=== PATIENT | male | born 1960 | race Caucasian/White ===

== ENCOUNTER → 2023-01-17 | Outpatient (CLI) | payer OTHER, SELFPAY ==
--- NOTE | 2023-01-17 19:35 | DI.MRI.S_ITS ---
PROCEDURE: MR SHOULDER RT WO CON INDICATIONS: PAIN IN RT SHOULDER TECHNIQUE: Noncontrast oblique coronal T2 fast spin echo with fat saturation, oblique sagittal T1 spin echo and T2 fast spin echo with fat saturation, axial T1 spin echo and T2 fast spin echo with fat saturation through the shoulder. COMPARISON: None. FINDINGS: Image quality: Excellent. Rotator cuff: Mild to moderate supraspinatus and infraspinatus tendinosis. The teres minor tendon is intact. The subscapularis tendon demonstrates mild tendinosis. No significant rotator cuff muscle atrophy is seen. Bones and bursae: No acute trabecular bone injury or fracture. Chronic traction cystic changes are seen at the posterosuperior humeral head as well as the greater tuberosity near the rotator cuff tendon insertions. High-grade cartilage loss is seen at the superomedial humeral head in there is multifocal cartilage irregularity in the glenoid. Moderate degenerative changes are seen at the acromioclavicular joint with subchondral cystic changes and marginal osteophytes. No significant subacromial/subdeltoid bursal fluid. No significant glenohumeral effusion is seen. Capsule and soft tissues: There is nearly circumferential nondisplaced tearing of the labrum, which appears to be chronic. There is partial intrasubstance tearing of the proximal intra-articular portion of the biceps long head tendon. There is effacement of the normal fat signal in the rotator interval. The anterior band of the inferior glenohumeral ligament appears thickened. IMPRESSION: 1. Kxwh-cu-vvyvzigu diffuse rotator cuff tendinosis. No significant rotator cuff tendon tear seen. 2. Partial intrasubstance tearing of the biceps long head tendon at the proximal intra-articular portion of the biceps anchor. 3. Nearly circumferential chronic tearing of the labrum. 4. 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 5. Moderate acromioclavicular joint osteoarthrosis. 6. Effacement of the rotator interval fat and mild thickening of the inferior glenohumeral ligament are nonspecific, but can be seen in the setting of the clinical syndrome of adhesive capsulitis. Approved by: Israel Shaffer M.D. on 01/20/2023 at 10:21
== END ==
LOC: MRI 19:34
PROVIDERS: Referring Provider Nurse Practitioner Family; Visit Provider Nurse Practitioner Family
DX: S46.111A Strain of muscle, fascia and tendon of long head of biceps, right arm, initial encounter (principal); S43.491A Other sprain of right shoulder joint, initial encounter; M25.511 Pain in right shoulder; M94.211 Chondromalacia, right shoulder; M19.011 Primary osteoarthritis, right shoulder
CPT/HCPCS: 73221

== ENCOUNTER → 2023-03-13 14:37 | Outpatient (CLI) | payer OTHER, SELFPAY ==
--- NOTE | 2023-03-13 | DI.US.S_ITS ---
PROCEDURE: US INJECT OR DRAIN JOINT INDICATIONS: PAIN IN SHOULDER TECHNIQUE: The indications, alternatives, benefits, risks, and complications of the procedure were explained to the patient. Written informed consent was obtained and placed in the chart. The patient was placed in an appropriate position on the fluoroscopy table, and a site was chosen for percutaneous access under ultrasound guidance. Local anesthetic was administered using a 1% lidocaine solution. A hypodermic or spinal needle was then used to access the symptomatic right biceps tendon sheath. Intra-articular location of the needle tip was confirmed by real time ultrasound imaging, followed by steroid administration. The needle was then withdrawn, and a bandage applied to the puncture site. FINDINGS: Joint injected: Right biceps tendon sheath Medications injected: 4 mL of 40 mg/mL Kenalog and 0.5% Ropivacaine mixture. Patient's pain before injection: 6 of 10. Patient's pain after injection: 3 of 10. Complications: None. IMPRESSION: Successful ultrasound guided administration of steroid and anaesthetic solution into the right biceps tendon sheath. Dictated by: Luis Fernando Crawford M.D. on 03/13/2023 at 21:06 Approved by: Luis Fernando Crawford M.D. on 03/13/2023 at 21:07
== END ==
PROVIDERS: PCP Family Medicine; Referring Provider Orthopaedic Surgery; Visit Provider Orthopaedic Surgery
DX: M25.511 Pain in right shoulder (principal)
CPT/HCPCS: 20611

== ENCOUNTER → 2024-09-15 13:40 | Outpatient (CLI) | payer MEDICARE, OTHER, SELFPAY ==
[2024-09-15 15:01] LABS: Cholesterol 233 mg/dL (140-199); HDL Cholesterol 56 mg/dL (40-60); LDL Cholesterol Calculated 147 mg/dL (<100); Triglycerides 151 mg/dL (35-150)
== END ==
PROVIDERS: PCP Nurse Practitioner Family; Referring Provider Nurse Practitioner Family; Visit Provider Nurse Practitioner Family
DX: Z13.220 Encounter for screening for lipoid disorders (principal)
CPT/HCPCS: 36415; 80061

== ENCOUNTER 2024-09-23 09:25 | Emergency (ER) | payer MEDICARE, OTHER, SELFPAY ==
[2024-09-23 09:40] VITALS: BP 171/99; PULSE 77; RESP 17; TEMP 36.9; O2SAT 96; BMI 23.6
--- NOTE | 2024-09-23 09:45 | DI.CT.S_ITS ---
PROCEDURE: CT FACIAL BONES WO CON INDICATIONS: fall TECHNIQUE: Noncontrast 2.5 mm thick axial images acquired from the mandible through the frontal sinuses, with coronal and sagittal reformatting. For radiation dose reduction, the following was used: automated exposure control, adjustment of mA and/or kV according to patient size. COMPARISON: [facility], CR, SPINE CERVICAL 2 OR 3VW, 01/10/2015, 12:46. [facility], CT, CT HEAD/BRAIN WO CON, 09/23/2024, 10:01. [facility], CT, CT CERVICAL SPINE WO CON, 09/23/2024, 10:01. FINDINGS: Image quality: Excellent. Bones and teeth: There is a mildly displaced left inferior orbital wall fracture. No rectus muscle entrapment. Mild fat herniation. Nasal bones and septum are intact. Visualized portions of the mandible demonstrate no fractures or subluxation. Zygomatic arches are intact. Pterygoid plates are intact. Visualized portions of the skull base and auditory canals are intact. Small calcification is present superior to the tip the odontoid. Is unable to be determined based on images at this was present on x-rays in 2014. Sinuses: Mucosal thickening and presumed fluid is present within the left maxillary sinus. Mildly displaced lateral left maxillary sinus wall fracture. Remaining sinuses demonstrate scattered areas of mucosal thickening. Soft tissues: No edema, masses, or fluid collections. No enlarged lymph nodes. No soft tissue lacerations or debris. Vascular: Visualized vascular structures appear normal in the absence of contrast. Bony vascular foramina and canals are intact. IMPRESSION: Mildly displaced inferior orbital wall fracture without rectus muscle entrapment. Left maxillary wall sinus fracture with fluid in the maxillary sinus. Small calcifications superior to the tip of the odontoid. This is suspected to be chronic however, if concern is present within this region for acute avulsion injury, MRI is recommended. Dictated by: Corie Webster M.D. on 09/23/2024 at 10:22 Approved by: Corie Webster M.D. on 09/23/2024 at 10:28
--- NOTE | 2024-09-23 09:45 | DI.CT.S_ITS ---
PROCEDURE: CT CERVICAL SPINE WO CON INDICATIONS: fall TECHNIQUE: Noncontrast 3 mm thick sections acquired from the skull base to the T4 level. Sagittal and coronal reformats were then constructed. For radiation dose reduction, the following was used: automated exposure control, adjustment of mA and/or kV according to patient size. COMPARISON: [facility], , SPINE CERVICAL 2 OR 3VW, 01/10/2015, 12:46. FINDINGS: Image quality: Excellent. Bones: Small calcification at the superior aspect of the odontoid. It is difficult to determine if this was present on x-ray of 2014. Anterior fusion from C4 through C6 is present. Visualized superior ribs are intact. Soft tissues: Prevertebral soft tissues are normal in thickness. No paravertebral hematomas. No apical pneumothoraces. IMPRESSION: Small calcification superior to the odontoid. This is suspected to be chronic either related to degenerative change or old trauma. However, if concern persists for acute injury, MRI may be obtained. Dictated by: Corie Webster M.D. on 09/23/2024 at 10:28 Approved by: Corie Webster M.D. on 09/23/2024 at 10:29
--- NOTE | 2024-09-23 09:45 | DI.CT.S_ITS ---
PROCEDURE: CT HEAD/BRAIN WO CON INDICATIONS: fall TECHNIQUE: Noncontrast 4.5 mm thick angled axial sections acquired from the foramen magnum to the vertex, with coronal and sagittal reformats. For radiation dose reduction, the following was used: automated exposure control, adjustment of mA and/or kV according to patient size. COMPARISON: [facility], CT, CT FACIAL BONES WO CON, 09/23/2024, 10:01. FINDINGS: Image quality: Diagnostic. CSF spaces: Basal cisterns are patent. No extra-axial fluid collections. Ventricles are normal in size and shape. Brain: No midline shift. No intracranial mass effect or hemorrhage. Monge-white matter interface is normal. Skull and face: There is irregularity within the inferior left orbital bones. Sinuses: Visualized sinuses demonstrate mucosal thickening most prominent in the left maxillary sinus as well as ethmoid air cells.. Irregularity is present along the lateral wall of the left maxillary sinus. IMPRESSION: No acute intracranial pathology. Suspected left inferior orbital wall and left maxillary wall fracture. Please see CT facial bone report for further details. Dictated by: Corie Webster M.D. on 09/23/2024 at 10:20 Approved by: Corie Webster M.D. on 09/23/2024 at 10:22
--- NOTE | 2024-09-23 09:46 | DI.RAD.S_ITS ---
PROCEDURE: XR WRIST LT MIN 3V INDICATIONS: fall TECHNIQUE: 4 views of the wrist were acquired. COMPARISON: None. FINDINGS: Bones: No fractures or dislocations. No suspicious bony lesions. Soft tissues: No suspicious soft tissue calcifications. IMPRESSION: No visualized acute fracture or dislocation. However, if clinical concern and/or pain persist, short interval imaging followup in 7-10 days is recommended, as occult injury cannot be definitively excluded. Dictated by: Corie Webster M.D. on 09/23/2024 at 10:13 Approved by: Corie Webster M.D. on 09/23/2024 at 10:14
--- NOTE | 2024-09-23 12:52 | ED_ITS ---
HPI - General Adult General Chief complaint: Trauma Stated complaint: Fell, eyebrow/head injury Time Seen by Provider: 09/23/24 12:51 Source: patient Mode of arrival: Ambulatory History of Present Illness HPI narrative: This is a 64-year-old male here for evaluation of trauma with brief loss of consciousness. Patient reports feeling fine and is in his normal state of health when he went fishing this morning. While attempting to get out of the boat he tripped and hit his head with a brief loss of consciousness for a few seconds. He is not on any blood thinners. He does admit to a iwde-[id number] headache, dizziness, nausea but no vomiting. He denies any neck pain, chest pain, shortness of breath, abdominal pain. He does admit to left-sided facial pain and swelling with a laceration above his left eyebrow. He did not bite his tongue or chip any teeth. There is no seizure activity witnessed. He does admit to left wrist and right knee pain. He does not take any medications on a regular basis. He drinks alcohol occasionally but none in the last 24 hours. He does use marijuana for pain management. His last tetanus shot was over 5 years. Related Data Previous Rx's Medication Instructions Recorded oxycodone-acetaminophen 5 mg-325 1 tab PO Q8H PRN pain #15 tabs 09/23/24 mg tablet (Percocet) Allergies Allergy/AdvReac Type Severity Reaction Status Date / Time Penicillins Allergy Severe Hives Verified 09/23/24 09:45 Review of Systems Review of Systems ROS Unobtainable: All systems reviewed & are unremarkable except as noted in HPI and below Patient History Medical History (Updated 09/23/24 @ 14:56 by Woodrow Pierre MD) Chronic pain tobacco type: smokeless tobacco Exam Narrative Exam Narrative: Focused physical exam as follows: General: Well developed, well nourished HEENT: pink palpebral conjunctiva, anicteric sclera, WILBERT, moist mucous membranes, moderate L periorbital edema and ecchymosis but EOM intact, TMJ ROM intact; 1.2cm superficial laceration on the L upper eyelid; no scleral or conjunctival injection; superficial abrasion on the left cheek Lungs: no respiratory distress, clear to auscultation without wheezes or crackles; equal breath sounds Heart: normal rate, regular rhythm, no appreciable murmurs Abdomen: soft, nontender, no rebound or rigidity Extremities: L wrist - pain with wrist flexion and extension but no gross deformities; no open wounds; R knee - few abrasion and tender to palpation over the patella but knee ROM intact Skin: few abrasions on the R knee and lower leg; facial laceration as noted above Neuro: AAOx3, GCS 15, nonfocal exam Psyche: no SI/HI, normal affect Initial Vital Signs Initial Vital Signs: Vital Signs Temperature 98.5 F 09/23/24 09:40 Pulse Rate 77 09/23/24 09:40 Respiratory Rate 17 09/23/24 09:40 Blood Pressure 171/99 H 09/23/24 09:40 Pulse Oximetry 96 09/23/24 09:40 Oxygen Delivery Method Room Air 09/23/24 09:40 Course Course Course Narrative: Modified Trauma code called on arrival and imaging studies ordered prior to my arrival and evaluation. Pt interviewed and examined. GCS 15. Neuro exam nonfocal. AAOx3. Imaging studies reviewed - inferior orbital wall fracture on the L w/ no muscle entrapment; L max wall sinus fracture; small calcification superior to the odontoid likely chronic - pt reports hx of neck injury and surgery with no neck pain today - unlikely acute. Negative R knee and L wrist for fracture Pt feeling fine prior to the fall. Will get POC Blood sugar to evaluate for hypoglycemia but will defer any blood work at this time. Percocet PO ordered for pain. Adacel ordered. Wounds cleaned with Hibiclens. Paged Dr. Moreira but he is unavailable. Considering fracture does not require immediate intervention, will have him follow up as an outpt. Pt declined sutures to his facial laceration. Stable for discharge. Orders Ordered: ED Orders 09/23/24 09:45 CT cervical spine wo con Stat CT facial bones wo con Stat CT head/brain wo con Stat 09/23/24 09:46 XR wrist LT min 3V Stat 09/23/24 13:21 XR knee RT 3V Stat Discontinued Medications Diphtheria/Tetanus/Acell Pertussis (Tet,Diph,Pertuss(Acell),Vac/Pf 0.5 Ml Syringe) 0.5 ml IM .ONCE ONE Stop: 09/23/24 09:48 Last Admin: 09/23/24 13:27 Dose: 0.5 ml Documented By: CHELY Oxycodone/Acetaminophen (Oxycodone/Acetaminophen 5/325 Tablet) 1 tab PO NOW ONE Stop: 09/23/24 13:10 Last Admin: 09/23/24 13:25 Dose: 1 tab Documented By: CHELY Vital Signs Vital signs: Vital Signs - 8 hr 09/23/24 09:40 Temperature 98.5 F Pulse Rate 77 Respiratory Rate 17 Blood Pressure 171/99 H Pulse Oximetry 96 Oxygen Delivery Method Room Air Medical Decision Making Medical Records Medical records reviewed: Yes I reviewed the patient's medical records. Lab Data Lab results reviewed: Yes I reviewed the patient's lab results. Labs: Point of Care Testing Glucose POC 99 Point of care testing: Point of Care Testing Glucose POC 99 Discharge Plan Departure Patient Disposition: Home Clinical Impression: Abrasion, multiple sites Fracture of inferior orbital wall Qualifiers: Encounter type: initial encounter Fracture type: closed Laterality: left Qualified Code(s): S02.32XA - Fracture of orbital floor, left side, initial encounter for closed fracture Facial laceration Qualifiers: Encounter type: initial encounter Qualified Code(s): S01.81XA - Laceration without foreign body of other part of head, initial encounter Fall Qualifiers: Encounter type: initial encounter Qualified Code(s): W19.XXXA - Unspecified fall, initial encounter Left wrist sprain Qualifiers: Encounter type: initial encounter Wrist sprain location: unspecified location Qualified Code(s): S63.502A - Unspecified sprain of left wrist, initial encounter Closed head injury Qualifiers: Encounter type: initial encounter Qualified Code(s): S09.90XA - Unspecified injury of head, initial encounter Instructions: Concussion, DI for Wrist Sprain, DI for Trauma, Skin Wound Activity Restrictions/Additional Instructions: You do have a facial fracture. Do not blow your nose. Ice face to help with swelling. Use Neosporin to your abrasions and watch for signs of infection. Use ibuprofen for mild pain and percocet for severe pain. Call Dr. Moreira's office for follow up visit. Return to the ER if with worsening headache, persistent vomiting or change in mental status. Prescriptions: New oxycodone-acetaminophen [Percocet] 5-325 mg tablet 1 tab PO Q8H PRN (Reason: pain) Qty: 15 0RF Referrals: Salomon Moreira DMD [Physician] - 3-5 days Erin Marti, NUCLEAR MEDICINE SPECIALIST-BC [Primary Care Provider] - Stand Alone Forms: Patient Portal/API/Survey
[2024-09-23 12:53] VITALS: PULSE 80; O2SAT 97
[2024-09-23 12:54] VITALS: BP 150/73; PULSE 81; O2SAT 97
--- NOTE | 2024-09-23 13:21 | DI.RAD.S_ITS ---
PROCEDURE: XR KNEE RT 3V INDICATIONS: pain TECHNIQUE: 3 views of the knee were acquired. COMPARISON: None. FINDINGS: Bones: No fractures or dislocations. No suspicious bony lesions. Soft tissues: Minimal joint effusion. No suspicious soft tissue calcifications. IMPRESSION: No visualized acute fracture or dislocation. However, if clinical concern and/or pain persist, short interval imaging followup in 7-10 days is recommended, as occult injury cannot be definitively excluded. Dictated by: Corie Webster M.D. on 09/23/2024 at 14:05 Approved by: Corie Webster M.D. on 09/23/2024 at 14:05
[2024-09-23] MEDS: OXYCODONE/ACETAMINOPHEN 5/325 TABLET 1 TAB PO (13:25)
[2024-09-23] MEDS: TET,DIPH,PERTUSS(ACELL),VAC/PF 0.5 ML SYRINGE IM (13:27)
== END 2024-09-23 15:10 | disposition home or self-care (01) ==
PROVIDERS: Emergency Provider Emergency Medicine; PCP Nurse Practitioner Family
DX: S02.32XA Fracture of orbital floor, left side, initial encounter for closed fracture (principal); S01.81XA Laceration without foreign body of other part of head, initial encounter; S63.502A Unspecified sprain of left wrist, initial encounter; R42 Dizziness and giddiness; S09.90XA Unspecified injury of head, initial encounter; R51.9 Headache, unspecified; S01.112A Laceration without foreign body of left eyelid and periocular area, initial encounter; M25.532 Pain in left wrist; M25.561 Pain in right knee; S80.812A Abrasion, left lower leg, initial encounter; S80.811A Abrasion, right lower leg, initial encounter; W01.198A Fall on same level from slipping, tripping and stumbling with subsequent striking against other object, initial encounter; Z23 Encounter for immunization
CPT/HCPCS: 70450; 70486; 72125; 73110; 73562; 82962; 90471; 99284; 90715

== ENCOUNTER → 2024-09-30 10:55 | Outpatient (CLI) | payer MEDICARE, OTHER, SELFPAY ==
--- NOTE | 2024-09-30 10:56 | DI.RAD.S_ITS ---
PROCEDURE: XR WRIST LT MIN 3V INDICATIONS: repeat XR, decreased ROM, painful lateral aspect TECHNIQUE: 4 views of the wrist were acquired. COMPARISON: [facility], [place], XR WRIST LT MIN 3V, 09/23/2024, 9:45. FINDINGS: Bones: No fractures or dislocations. No suspicious bony lesions. Soft tissues: No suspicious soft tissue calcifications. IMPRESSION: No acute bony abnormality. Dictated by: Corie Webster M.D. on 09/30/2024 at 15:56 Approved by: Corie Webster M.D. on 09/30/2024 at 15:57
== END ==
LOC: RAD 10:56
PROVIDERS: PCP Nurse Practitioner Family; Referring Provider Nurse Practitioner Family; Visit Provider Nurse Practitioner Family
DX: S63.502A Unspecified sprain of left wrist, initial encounter (principal); M25.532 Pain in left wrist; X58.XXXA Exposure to other specified factors, initial encounter
CPT/HCPCS: 73110

== ENCOUNTER → 2024-10-04 18:31 | Outpatient (CLI) | payer MEDICARE, OTHER, SELFPAY ==
--- NOTE | 2024-10-04 18:34 | DI.MRI.S_ITS ---
PROCEDURE: MR ORBITS FACE NECK WO CON INDICATIONS: facial injury TECHNIQUE: Noncontrast sagittal T1 spin echo, axial FLAIR, axial gradient echo, axial diffusion and ADC acquired through the brain. Coronal STIR, thin-slice axial T1 spin echo through the orbits. After the administration of contrast, thin-slice axial and coronal T1 spin echo with fat saturation through the orbits, axial and coronal and sagittal T1 spin echo with fat saturation through the brain. COMPARISON: [facility], CT, CT FACIAL BONES WO CON, 09/23/2024, 10:01. FINDINGS: Image quality: Mildly degraded by patient motion artifact. Orbits: Globes are symmetrical. The optic nerves are normal in size, without abnormal signal or enhancement. No retrobulbar masses or fat abnormalities. There is mild edema and swelling involving the left inferior rectus muscle with either trace surrounding edema or hemorrhage. Right inferior rectus muscle entrapment is not excluded by enlarged imaging. Lacrimal glands are normal. Optic chiasm is normal. Periorbital soft tissues appear normal. CSF spaces: Ventricles are normal in size and shape. Basal cisterns are patent. No extra-axial fluid collections. Brain: No intracranial bleeds or mass effects. No abnormal intracranial enhancement. Monge-white matter interface is intact. Diffusion weighted images demonstrate no acute ischemic insults. Pituitary gland appears normal, without sellar or suprasellar masses. Brainstem appears normal. Normal intravascular flow voids are present. Skull and face: Calvarial marrow is normal in signal. Inferior left orbit wall fracture, posterior-lateral left orbit wall fracture extending into the left optic canal in the base of the left sphenoid greater wing and anterior-inferior left maxillary sinus wall or better visualized by CT scan of the face. Sinuses: Mucosal thickening in the bilateral maxillary sinuses, bilateral sphenoid sinuses and bilateral ethmoid air cells. The mastoids are clear. IMPRESSION: Left inferior orbit wall fracture, posterior-lateral left orbit wall fracture with extension into left optic canal and base of left greater sphenoid wing and left anterior maxillary sinus wall fracture better visualized by facial CT imaging September 23, 2024. Mild right inferior rectus muscle edema and swelling with trace adjacent loss hemorrhage or edema. Right inferior rectus muscle entrapment is not excluded by MR imaging. Recommend correlation with clinical findings. Dictated by: Maryam Newby MD, PhD on 10/05/2024 at 9:22 Approved by: Maryam Newby MD, PhD on 10/05/2024 at 10:18
== END ==
LOC: MRI 18:32
PROVIDERS: PCP Nurse Practitioner Family; Referring Provider Nurse Practitioner Family; Visit Provider Nurse Practitioner Family
DX: S02.32XA Fracture of orbital floor, left side, initial encounter for closed fracture (principal); R60.0 Localized edema; X58.XXXA Exposure to other specified factors, initial encounter
CPT/HCPCS: 70540